=== PATIENT | male | born 1975 | race Caucasian/White ===

== ENCOUNTER 2016-08-22 09:03 | Emergency (ER) | payer SELFPAY ==
[~2016-08-22] VITALS: Ht 182.9 cm; Wt 85.0 kg
[~2016-08-22 09:03] MED LIST: IBUP800T23 PO; NYST100010 PO; ORAB20GE BUCCAL; PENI500T PO
[2016-08-22 09:04] VITALS: BP 149/81; PULSE 73; RESP 15; TEMP 98; O2SAT 98
[2016-08-22 09:35] VITALS: BP 130/85; PULSE 58; RESP 18; O2SAT 98
[2016-08-22] MEDS ORDERED: SODIUM CHLORIDE 0.9% FLUSH 10 ML FLUSH IVF PRN (09:45)
[2016-08-22] MEDS ORDERED: KETOROLAC TROMETHAMINE 30 MG/ML (IVP) VIAL IV PUSH ONE (09:45)
[2016-08-22] MEDS ORDERED: SODIUM CHLOR 0.9% 1000 ML INJ 1,000 ML IV ONE (09:45)
--- NOTE | 2016-08-22 09:45 | PD ---
HPI Chief Complaint: Pain: Acute or Chronic Time Seen by Provider: 09:25 Travel History International Travel<30 days: No Contact w/Intl Traveler<30days: No Traveled to known affect area: No History of Present Illness HPI Patient is a 41-year-old male who presents to emergency room with complaints of chest pain and right arm tingling for the past 3 weeks. 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 Patient reports that 3 weeks ago he began to have right elbow pain. Patient reports that whenever he touches elbow, he would have radiating pain up and down his arm. Reports that he has pain from his neck going into his right arm. Patient reports that it is painful for him to range of motion his right upper extremity. Denies any obvious traumas or injuries to his right arm. He is also been noticing some pains to his right chest. Reports that he has been having some sharp and stabbing pains to his right chest, reports that pain is nonradiating in nature. Reports that symptoms lasted for a few minutes and resolved on its own. He does have some shortness of breath the symptoms. Patient denies any history of coronary artery disease, history of diabetes, hypertension or hyperlipidemia. He is a smoker. Reports that he does have family history of heart problems, reports that he is not sure what these heart problems are. Patient denies any recent travels or trips or immobilizations. PFSH Past Medical History Medical History: Denies Significant Hx Diabetes: No Patient Takes Glucophage: No Tetanus Vaccination: Never Vaccinated ?: Not Past Surgical History Surgical History: No Previous Surgery Social History Alcohol Use: Yes (weekends 6 ppd per day beer) Tobacco Use: Yes (2 pp week) Substance Use: No Allergies-Medications (Allergen,Severity, Reaction): Coded Allergies: No Known Allergies (Unverified , 08/22/16) Reported Meds & Prescriptions Reported Meds & Active Scripts Active Review of Systems General / Constitutional: No: Fever Eyes: No: Visual changes HENT: Positive: Neck Pain, No: Headaches Cardiovascular: Positive: Chest Pain or Discomfort Respiratory: Positive: Shortness of Breath Gastrointestinal: No: Abdominal Pain Genitourinary: No: Dysuria Musculoskeletal: Positive: Pain (right arm) Skin: No Rash Neurologic: No: Weakness Psychiatric: No: Depression Endocrine: No: Polydipsia Hematologic/Lymphatic: No: Easy Bruising Physical Exam Narrative GENERAL: Mild distress SKIN: Focused skin assessment warm/dry. HEAD: Atraumatic. Normocephalic. EYES: Pupils equal and round. No scleral icterus. No injection or drainage. ENT: No nasal bleeding or discharge. Mucous membranes pink and moist. NECK: Trachea midline. No JVD. CARDIOVASCULAR: Regular rate and rhythm. No murmur appreciated. RESPIRATORY: No accessory muscle use. Clear to auscultation. Breath sounds equal bilaterally. GASTROINTESTINAL: Abdomen soft, non-tender, nondistended. Hepatic and splenic margins not palpable. MUSCULOSKELETAL: No obvious deformities. No clubbing. No cyanosis. No edema. Patient with tenderness to the right elbow to touch, patient with normal range of motion to his right shoulder, right elbow, right wrist, pulses intact, neurologically intact.. Patient does have some midline tenderness to his cervical spine with radiculopathy on palpation NEUROLOGICAL: Awake and alert. No obvious cranial nerve deficits. Motor grossly within normal limits. Normal speech. PSYCHIATRIC: Appropriate mood and affect; insight and judgment normal. Data Data Last Documented VS Vital Signs Date Time Temp Pulse Resp B/P Pulse Ox O2 Delivery O2 Flow Rate FiO2 08/22/16 11:42 74 16 134/61 97 Room Air 08/22/16 09:04 98.0 Orders Electrocardiogram (08/22/16 ) Electrocardiogram (08/22/16 09:31) Ckmb (Isoenzyme) Profile (08/22/16 09:31) Complete Blood Count With Diff (08/22/16 09:31) Comprehensive Metabolic Panel (08/22/16 09:31) D-Dimer (08/22/16 09:31) Magnesium (Mg) (08/22/16 09:31) Prothrombin Time / Inr (Pt) (08/22/16 09:31) Act Partial Throm Time (Ptt) (08/22/16 09:31) Troponin I (08/22/16 09:31) Lipase (08/22/16 09:31) Chest, Single Ap (08/22/16 09:31) Ecg Monitoring (08/22/16 09:31) Iv Access Insert/Monitor (08/22/16 09:31) Oximetry (08/22/16 09:31) Sodium Chloride 0.9% Flush (Ns Flush) (08/22/16 09:45) Ct Cerv Spine W/O Contrast (08/22/16 ) Sodium Chlor 0.9% 1000 Ml Inj (Ns 1000 M (08/22/16 09:45) Ketorolac Inj (Toradol Inj) (08/22/16 09:45) CKMB (08/22/16 09:46) CKMB% (08/22/16 09:46) Electrocardiogram (08/22/16 ) Electrocardiogram (08/22/16 ) Labs Laboratory Tests Test 08/22/16 09:46 White Blood Count 5.6 TH/MM3 Red Blood Count 5.04 MIL/MM3 Hemoglobin 15.5 GM/DL Hematocrit 46.6 % Mean Corpuscular Volume 92.3 FL Mean Corpuscular Hemoglobin 30.7 PG Mean Corpuscular Hemoglobin 33.3 % Concent Red Cell Distribution Width 13.9 % Platelet Count 219 TH/MM3 Mean Platelet Volume 8.4 FL Neutrophils (%) (Auto) 62.0 % Lymphocytes (%) (Auto) 26.7 % Monocytes (%) (Auto) 9.5 % Eosinophils (%) (Auto) 1.4 % Basophils (%) (Auto) 0.4 % Neutrophils # (Auto) 3.5 TH/MM3 Lymphocytes # (Auto) 1.5 TH/MM3 Monocytes # (Auto) 0.5 TH/MM3 Eosinophils # (Auto) 0.1 TH/MM3 Basophils # (Auto) 0.0 TH/MM3 CBC Comment DIFF FINAL Differential Comment Prothrombin Time 11.0 SEC Prothromb Time International 1.0 RATIO Ratio Activated Partial 30.5 SEC Thromboplast Time D-Dimer Quantitative (PE/DVT) LESS THAN 0.19 MG/L FEU Sodium Level 140 MEQ/L Potassium Level 4.2 MEQ/L Chloride Level 108 MEQ/L Carbon Dioxide Level 24.0 MEQ/L Anion Gap 8 MEQ/L Blood Urea Nitrogen 15 MG/DL Creatinine 0.88 MG/DL Estimat Glomerular Filtration 96 ML/MIN Rate Random Glucose 84 MG/DL Calcium Level 9.2 MG/DL Magnesium Level 2.3 MG/DL Total Bilirubin 0.6 MG/DL Aspartate Amino Transf 24 U/L (AST/SGOT) Alanine Aminotransferase 30 U/L (ALT/SGPT) Alkaline Phosphatase 77 U/L Total Creatine Kinase 335 U/L Creatine Kinase MB 1.1 NG/ML Creatine Kinase MB % 0.3 % Troponin I LESS THAN 0.02 NG/ML Total Protein 7.7 GM/DL Albumin 4.3 GM/DL Lipase 280 U/L MDM Medical Decision Making Medical Screen Exam Complete: Yes Emergency Medical Condition: Yes Interpretation(s) EKG at 0931: Sinus bradycardia at 59 bpm, qt/qtc: 373/373, no acute ST or T- wave changes Vital Signs Date Time Temp Pulse Resp B/P Pulse Ox O2 Delivery O2 Flow Rate FiO2 08/22/16 09:35 58 18 130/85 98 Room Air 08/22/16 09:04 98.0 73 15 149/81 98 Differential Diagnosis Cervical radiculopathy, muscle strain, costochondritis, ACS though unlikely, PE , pneumothorax, electrolyte abnormality Narrative Course Patient is a 41-year-old male who presents to emergency room for evaluation of right arm pain as well as chest pain for the past 3 weeks. Patient reports right elbow pain and now with pain from his neck down his arm. These symptoms are consistent with cervical radiculopathy, overall patient does have a benign exam. Patient is tender to touch to his right elbow, there is no signs of effusion or infection, no signs of fracture. When his elbow is palpated , he does have radiculopathy down to his fingers. Patient also with cervical adenopathy upon palpation of his C-spine. Plan to obtain CT of the neck. Patient also with right-sided chest pain. Patient reports that pain has been intermittent, sharp and stabbing in nature and lasts for few minutes at a time. Patient with no history of coronary disease, hypertension or hyperlipidemia. EKG shows no acute ST-T wave changes, patient does have reproducible chest pain patient. I do think that symptoms are consistent with costochondritis. I will perform a work up to evaluate for other possible reasons for his symptoms including but not limited to infectious etiology, pneumothorax, infection. IV fluids as well as IV Toradol administered for pain. Vital Signs Date Time Temp Pulse Resp B/P Pulse Ox O2 Delivery O2 Flow Rate FiO2 08/22/16 11:42 74 16 134/61 97 Room Air 08/22/16 09:35 58 18 130/85 98 Room Air 08/22/16 09:04 98.0 73 15 149/81 98 Laboratory Tests Test 08/22/16 09:46 White Blood Count 5.6 TH/MM3 (4.0-11.0) Red Blood Count 5.04 MIL/MM3 (4.50-5.90) Hemoglobin 15.5 GM/DL (13.0-17.0) Hematocrit 46.6 % (39.0-51.0) Mean Corpuscular Volume 92.3 FL (80.0-100.0) Mean Corpuscular Hemoglobin 30.7 PG (27.0-34.0) Mean Corpuscular Hemoglobin 33.3 % Concent (32.0-36.0) Red Cell Distribution Width 13.9 % (11.6-17.2) Platelet Count 219 TH/MM3 (150-450) Mean Platelet Volume 8.4 FL (7.0-11.0) Neutrophils (%) (Auto) 62.0 % (16.0-70.0) Lymphocytes (%) (Auto) 26.7 % (9.0-44.0) Monocytes (%) (Auto) 9.5 % (0.0-8.0) Eosinophils (%) (Auto) 1.4 % (0.0-4.0) Basophils (%) (Auto) 0.4 % (0.0-2.0) Neutrophils # (Auto) 3.5 TH/MM3 (1.8-7.7) Lymphocytes # (Auto) 1.5 TH/MM3 (1.0-4.8) Monocytes # (Auto) 0.5 TH/MM3 (0-0.9) Eosinophils # (Auto) 0.1 TH/MM3 (0-0.4) Basophils # (Auto) 0.0 TH/MM3 (0-0.2) CBC Comment DIFF FINAL Differential Comment Prothrombin Time 11.0 SEC (9.8-11.6) Prothromb Time International 1.0 RATIO Ratio Activated Partial 30.5 SEC Thromboplast Time (24.3-30.1) D-Dimer Quantitative (PE/DVT) LESS THAN 0.19 MG/L FEU (0.00-0.50) Sodium Level 140 MEQ/L (136-145) Potassium Level 4.2 MEQ/L (3.5-5.1) Chloride Level 108 MEQ/L (98-107) Carbon Dioxide Level 24.0 MEQ/L (21.0-32.0) Anion Gap 8 MEQ/L (5-15) Blood Urea Nitrogen 15 MG/DL (7-18) Creatinine 0.88 MG/DL (0.60-1.30) Estimat Glomerular Filtration 96 ML/MIN (>89) Rate Random Glucose 84 MG/DL (74-106) Calcium Level 9.2 MG/DL (8.5-10.1) Magnesium Level 2.3 MG/DL (1.5-2.5) Total Bilirubin 0.6 MG/DL (0.2-1.0) Aspartate Amino Transf 24 U/L (15-37) (AST/SGOT) Alanine Aminotransferase 30 U/L (12-78) (ALT/SGPT) Alkaline Phosphatase 77 U/L (45-117) Total Creatine Kinase 335 U/L (39-308) Creatine Kinase MB 1.1 NG/ML (0.5-3.6) Creatine Kinase MB % 0.3 % (0.0-4.0) Troponin I LESS THAN 0.02 NG/ML (0.02-0.05) Total Protein 7.7 GM/DL (6.4-8.2) Albumin 4.3 GM/DL (3.4-5.0) Lipase 280 U/L (73-393) Last Impressions Chest X-Ray 08/22/16 0931 Signed Impressions: Service Date/Time: August 09:50 - CONCLUSION: No acute cardiopulmonary abnormality is identified. Michael Brown MD Cervical Spine CT 08/22/16 0000 Signed Impressions: Service Date/Time: August 10:11 - CONCLUSION: No significant cervical spine abnormality is identified to explain the clinical symptoms. There is no significant spinal canal stenosis or neural foraminal narrowing identified. Michael Brown MD heart score: 2 patient with low heart score, plan to discharge patient to home with outpt follow up. Patient did have repeat EKG on discharge, EKG at 1128 shows normal sinus rhythm at 61bpm, qt/qtc: 383/386, no acute st or t wave changes Patient's symptoms are most likely muscle skeletal in nature, to follow-up with [facility] as well as orthopedic surgery as outpatient. Patient will follow- up with primary care doctor as well. Signs of when to return to the emergency room was reviewed patient in detail. Diagnosis Primary Impression: Chest pain Additional Impression: Cervical radicular pain Referrals: Juan F Foley MD, Stephen E. MD Patient Instructions: General Instructions Departure Forms: Tests/Procedures, Work Release Enter return to work date: Aug 26, 2016 Additional Instructions: Please provide patient with a copy of his lab work and studies at discharge Please follow-up with your primary care doctor as soon as possible Please follow-up with cardiology as well as orthopedic surgery Return to emergency room if symptoms worsen or progress Return to the emergency room as needed Disposition: 01 DISCHARGE HOME Condition: Stable Amira Benson DO Aug 22, 2016 09:45
[2016-08-22 10:00] LABS: AUTOMATED NEUTROPHIL # 3.5 TH/MM3 (1.8-7.7); BASOPHIL % 0.4 % (0.0-2.0); EOSINOPHIL # 0.1 TH/MM3 (0-0.4); EOSINOPHIL % 1.4 % (0.0-4.0); HEMATOCRIT 46.6 % (39.0-51.0); HEMO FLAGS DIFF FINAL; LYMPH % 26.7 % (9.0-44.0); LYMPHOCYTE # 1.5 TH/MM3 (1.0-4.8); MEAN CELL VOLUME 92.3 FL (80.0-100.0); MEAN CORPUSCULAR HEMOGLOBIN 30.7 PG (27.0-34.0); MEAN CORPUSCULAR HGB CONC 33.3 % (32.0-36.0); MONO % 9.5 % (0.0-8.0); PLATELET COUNT 219 TH/MM3 (150-450); RED BLOOD COUNT 5.04 MIL/MM3 (4.50-5.90); RED CELL DISTRIBUTION WIDTH 13.9 % (11.6-17.2); WHITE BLOOD COUNT 5.6 TH/MM3 (4.0-11.0)
--- NOTE | 2016-08-22 10:07 | RADRPT ---
EXAM DATE/TIME: 08/22/2016 09:50 [facility] COMPARISON: No previous studies available for comparison. INDICATIONS : Chest pain. MEDICAL HISTORY : None. SURGICAL HISTORY : None. ENCOUNTER: Initial ACUITY: 1 day PAIN SCORE: 4/10 LOCATION: Bilateral chest FINDINGS: Portable AP view of the chest demonstrates a normal-sized cardiac silhouette. No effusion, consolidat ion, or pneumothorax is visualized. The bones and soft tissues demonstrate no acute abnormality. CONCLUSION: No acute cardiopulmonary abnormality is identified. Michael Brown MD on August 22, 2016 at 10:05 Board Certified Radiologist. This report was verified electronically.
[2016-08-22 10:12] LABS: APTT (PATIENT) 30.5 SEC (24.3-30.1)
[2016-08-22 10:19] LABS: ALKALINE PHOSPHATASE 77 U/L (45-117); CREATINE KINASE 335 U/L (39-308); TOTAL BILIRUBIN ADULT 0.6 MG/DL (0.2-1.0)
[2016-08-22 10:20] LABS: ALT (GPT) 30 U/L (12-78); ANION GAP 8 MEQ/L (5-15); AST (GOT) 24 U/L (15-37); BLOOD UREA NITROGEN 15 MG/DL (7-18); CHLORIDE 108 MEQ/L (98-107); GLOMERULAR FILTRATION RATE 96 ML/MIN (>89); MAGNESIUM 2.3 MG/DL (1.5-2.5); POTASSIUM 4.2 MEQ/L (3.5-5.1); SODIUM (NA) 140 MEQ/L (136-145)
[2016-08-22 10:31] LABS: CKMB 1.1 NG/ML (0.5-3.6)
--- NOTE | 2016-08-22 10:48 | RADRPT ---
EXAM DATE/TIME: 08/22/2016 10:11 [facility] COMPARISON: No previous studies available for comparison. INDICATIONS : Lt arm pain and tingling. RADIATION DOSE: 22.24 CTDIvol (mGy) MEDICAL HISTORY : None SURGICAL HISTORY : None. ENCOUNTER: Initial ACUITY: 1 day PAIN SCALE: 0/10 LOCATION: TECHNIQUE: Volumetric scanning of the cervical spine was performed. Multiplanar reconstructions in the sagittal, coronal and oblique axial planes were performed. Using automated exposure control and adjustment o f the mA and/or kV according to patient size, radiation dose was kept as low as reasonably achievable to obtain optimal diagnostic quality images. FINDINGS: VERTEBRAE: Normal vertebral body height. No fracture is visualized. There is incomplete fusion of the posterior arch of C1 in the midline representing a normal variant. ALIGNMENT: No anterolisthesis or retrolisthesis. The craniocervical junction and C1-C2 level demonstrate no abnormality. C2-C3: No disc herniation, canal stenosis, or neural foraminal narrowing. C3-C4: No disc herniation, canal stenosis, or neural foraminal narrowing. C4-C5: No disc herniation or canal stenosis. There is a small left uncovertebral osteophyte with minimal kan rowing of the left neural foramen. C5-C6: No disc herniation, canal stenosis, or neural foraminal narrowing. C6-C7: There is a mild broad-based disc bulge. No canal stenosis or neural foraminal narrowing is visualized . C7-T1: No disc herniation, canal stenosis, or neural foraminal narrowing. The visualized paraspinous structures demonstrate no acute finding. CONCLUSION: No significant cervical spine abnormality is identified to explain the clinical symptoms. There is no significant spinal canal stenosis or neural foraminal narrowing identified. Michael Brown MD on August 22, 2016 at 10:42 Board Certified Radiologist. This report was verified electronically.
--- NOTE | 2016-08-22 11:16 | EKG ---
Date Performed: 08/22/2016 Time Performed: 09:31:48 PTAGE: 41 years EKG: SINUS BRADYCARDIA WITH SINUS ARRHYTHMIA BORDERLINE ECG NO PREVIOUS TRACING DOCTOR: Hakan Perez Interpretating Date/Time 08/22/2016 11:15:40
[2016-08-22 11:42] VITALS: BP 134/61; PULSE 74; RESP 16; O2SAT 97
--- NOTE | 2016-08-23 12:17 | EKG ---
Date Performed: 08/22/2016 Time Performed: 11:28:08 PTAGE: 41 years EKG: Sinus rhythm NORMAL ECG Compared to prior tracing no significant change PREVIOUS TRACING : 08/22/2016 09.31 DOCTOR: Jack Stark Interpretating Date/Time 08/23/2016 12:16:49
== END 2016-08-22 12:16 | disposition home or self-care (01) ==
LOC: NEPC 09:03
DX: R07.9 Chest pain, unspecified (principal); M54.12 Radiculopathy, cervical region; R00.1 Bradycardia, unspecified; F17.210 Nicotine dependence, cigarettes, uncomplicated
CPT/HCPCS: 71010; 72125; 80053; 82550; 82552; 83690; 83735; 84484; 85025; 85379; 85610; 85730; 93005; 96361; 96374; 99285; J1885; J7030